=== PATIENT | female | born 1960 | race Caucasian/White ===

== ENCOUNTER 2018-07-24 10:58 | Emergency (ER) | payer OTHER, SELFPAY ==
[2018-07-24] VITALS (50 sets, daily range): BP systolic 94–117; BP diastolic 65–84; PULSE 91–103; RESP 15–32; TEMP 36.4; O2SAT 90–98
[2018-07-24] MEDS: Normal Saline 1,000 ML 1000 ML IV (11:42)
[2018-07-24 11:44] LABS: Abs Immature Grans 0.03 k/cumm (0.0-0.09); Absolute Basophil Count 0.03 k/cumm (0.0-0.2); Absolute Eosinophil Count 0.02 k/cumm (0.0-0.7); Absolute Lymphocyte Count 1.39 k/cumm (1.2-3.4); Absolute Monocyte Count 0.48 k/cumm (0.11-0.7); Absolute Neutrophil Count 6.31 k/cumm (1.2-6.7); Basophils % 0.4; Eosinophils % 0.2; HCT 44.7 % (36.0-46.0); Immature Grans % 0.4; Lymphocytes % 16.8; Mean Corp. HGB Concentration 33.6 g/dL (32.0-36.0); Mean Corpuscular Hemoglobin 30.1 pg (27.0-33.0); Mean Corpuscular Volume 89.6 fL (80-95); Mean Platelet Volume 11.4 fL (8.0-11.0); Monocytes % 5.8; Neutrophils % 76.4; Platelet Count 167 x1000/uL (130-400); RBC 4.99 m/cumm (4.00-5.20); RBC Distribution Width 13.3 % (11.7-14.6); White Blood Cell Count 8.26 k/cumm (4.4-10.8)
[2018-07-24 12:05] LABS: ALT 19 U/L (12-78); AST 26 U/L (15-37); Albumin 3.7 g/dL (3.4-5.0); Alkaline Phosphatase 120 U/L (46-116); Anion Gap 14.9 mmol/L (3-11); BUN 19 mg/dL (7-18); Bilirubin, Total 0.7 mg/dL (0.2-1.0); CO2 21.1 mmol/L (21.0-32.0); CREATININE 1.26 mg/dL (0.55-1.02); Calcium 10.2 mg/dL (8.5-10.1); Chloride 103 mmol/L (98-107); Estimated GFR 43.46 (mL/min/1.73m2); Glucose 157 mg/dL (70-100); Magnesium 2.2 mg/dL (1.8-2.4); Potassium 4.6 mmol/L (3.5-5.1); Sodium 139 mmol/L (136-145); Total Protein 8.9 g/dL (6.4-8.2)
[2018-07-24 12:07] LABS: TSH (W/Ref FT4) 3.45 uIU/mL (0.358-3.74)
[2018-07-24 12:08] LABS: Troponin I 0.07 ng/mL (0.00-0.06)
--- NOTE | 2018-07-24 12:11 | W.ED.GENAD ---
Discharge Plan Disposition Patient Disposition: [facility] Condition: Stable Discharge Details Chief Complaint: Dizzy/Sync Clinical Impression: Pulmonary emboli, Syncope, Fracture of tooth, SOB (shortness of breath) Primary Care Provider: None,None ED Provider: Guy Kam Home Meds and New Rx's Prescriptions: No Action acetaminophen [Tylenol] 325 MG tablet 975 mg PO QID PRNRF: 0 dorzolamide-timolol 10 ML drops 5 ml Ophthalmic BID RF: 0 ibuprofen 800 MG tablet 800 mg PO TID PRN (Reason: PAIN/SWELLING) Qty: 30 RF: 0 Medical Decision Making This is a 58-year-old [place] female who presents for evaluation of 5 episodes of syncope, mild chest pain shortness of breath. She had one episode of vomiting. She does often travel around the world, but denies any recent travel. No history of PE or cardiac disease. EKG demonstrates notable inverted T waves in the anterior leads, concerning for right heart strain. Patient is mildly hypotensive, slightly tachycardic but not hypoxic. Notable concern for PE vs massive PE, less likely cardiac etiology, in conjunction with severe dehydration. We will rehydrate, get a CT angios, reassess. We will continue her cardiac workup. Because of the notably loose teeth a dental splint was applied and appears to demonstrate stability in the teeth. 1:[address] results have returned and demonstrate evidence of massive multiple pulmonary emboli, with evidence of right heart strain, I feel that this is most notably supported by her low troponin leak at 0.07 and her notably elevated proBNP at 10,800. EKG continues to show T wave inversions but no evidence of STEMI. I feel her symptoms are secondary to cardiac strain from her multiple PEs. We have started heparinization with a bolus as well. Secondary to the right heart strain and massive PEs feel the patient would be best fit at a high level medical facility [facility] or [facility]. With her pressures improved to 120 systolic I do not think that TPA is indicated at this time. CT scan of the head and face demonstrate no evidence of acute fracture or bleed and so heparin will be started. 3:40 PM I did contact [facility], and discussed the case with Dr. Duval, she agrees with the current assessment and plan. The patient will be transferred to [facility] for further medical management. The patient will be admitted under Dr. Pinzon. They did not have any additional recommendations for medication alteration or management aside from what was being done already. I have extensively reviewed the treatment plan with the patient. I have addressed all patient concerns at this time. I have also discussed the plan with the admitting physician and they agree with the current assessment and plan and have agreed to assume responsibility for the patient. All parties demonstrate verbal understanding and agreement with our assessment and plan at this time. Upon my evaluation, this patient had a high probability of imminent or life-threatening deterioration, which required my direct attention, intervention, and personal management. I have personally provided 45 minutes of critical care time exclusive of time spent on separately billable procedures. Time includes review of laboratory data, radiology results, discussion with consultants, and monitoring for potential decompensation. Interventions were performed as documented above. EKG 11: 39 Rate 94, [place] 172, QTc 485, QRS 92, sinus rhythm, inverted T waves in V1 through V4, no Q waves, inverted T waves also in leads III and aVF. No prior EKG for comparison, no evidence of STEMI EKG 11: 04 Rate 98, [place] 160, QTc 480, QRS 92, sinus rhythm, inverted T waves V1 through V4, lead III, and aVF. No evidence of STEMI, no significant ST elevations or depressions. No Q waves. CRANIAL CT: Noncontrast cranial CT was performed. The patient reportedly has a history of facial trauma. The orbital structures and calvarium appear intact. There is soft tissue gas in the facial region. The paranasal sinuses and mastoid air cells are well aerated. The temporal bone structures appear intact. The ventricular system is normal in appearance. No evidence of acute intracranial hemorrhage, mass effect or midline shift. CONCLUSION: No evidence of acute intracranial injury. FACIAL BONE CT: CT examination of the facial region was performed utilizing multi-slice acquisition and multi-planar reconstruction. The patient reportedly has fractured teeth. No mandibular or maxillary fracture identified. The paranasal sinuses are well aerated. No nasal fracture seen. Orbital contents appear normal. The zygomatic arches appear intact. Sphenoid bones appear intact. The tracheolaryngeal structures appear intact. CONCLUSION: No evidence of acute facial fracture. There is significant artifact from dental work which obscures the teeth. The patient reportedly has a number of clinically apparent fractured teeth. CT ANGIOGRAPHY CHEST: CT angiography was performed with multi slice acquisition and multi planar and 3D reconstruction. CT Angiography of the chest was performed with a bolus infusion of 100 cc's of Omnipaque 350. There are very large filling defects which occupy much of the pulmonary arterial circulation with a saddle embolus crossing into right and left main pulmonary arteries and emboli in essentially all segment vessels. There is evidence of right heart strain with flattened intraventricular septum, enlarged main pulmonary artery, and reflux into hepatic veins and IVC. Minimal peripheral intrapulmonary densities are noted in the anterior left lung apex which are nonspecific and could represent atelectasis. Small pulmonary infarct not excluded. No other focal consolidation seen. No pleural effusion seen. No mediastinal or hilar adenopathy. Images obtained through the upper abdomen show unremarkable appearance of visualized portions of liver, spleen, kidneys, adrenals and pancreas with note made again of reflux of contrast material into the IVC and hepatic veins consistent with right heart strain. CONCLUSION: Findings of massive pulmonary embolus as described above with CT findings suggesting right ventricular strain. HPI General Date/Time Provider Initiated Documentation: 07/24/18 11:08. HPI Narrative: This is a 58-year-old female with no past medical history who presents today for evaluation of syncope, chest pain, shortness of breath. Patient states that over the last 2 days she has been notably lightheaded, with intermittent episodes of chest pain and shortness of breath. She has had 5 episodes of passing out which she has never had before. Most recent time she fell and hit the front of her face on the bathtub, damaging her teeth. She has felt notably weak, has had one episode of vomiting, and does had mild headache. Currently she denies any chest pain at this time. She denies any arm neck or shoulder pain, she denies any abdominal pain. She does admit to multiple flights in general, and she states that she is moving to [place] in 5 days. She denies any history or family history of cardiac disease, PEs, estrogen use, recent surgeries or traumas. She has no other complaints at this time. She denies any hemoptysis, fever, chills. Past medical history is only positive for glaucoma and multiple glaucoma surgeries. Related Data Home Medications Medication Instructions Recorded Confirmed acetaminophen [Tylenol] 975 mg PO QID PRN 01/23/15 07/24/18 dorzolamide-timolol 5 ml OPHTHALMIC BID 01/23/15 07/24/18 ibuprofen 800 mg PO TID PRN #30 tab 01/23/15 07/24/18 Previous Rx's Medication Instructions Recorded ibuprofen 800 mg PO TID PRN #30 tab 01/23/15 Allergies Allergy/AdvReac Type Severity Reaction Status Date / Time amoxicillin AdvReac itching Unverified 07/24/18 11:45 General Stated Complaint: Dizzy/Sync ALEXIS: 2 Review of Systems Review of Systems All systems reviewed & are unremarkable except as noted in HPI and below PFSH Social History Smoking/Tobacco Use Status: Never Drug use: Never Do you feel safe at home: Yes Do you feel safe in your relationship?: Yes Exam Narrative Exam Narrative: 1.Const: Well-nourished, Well-developed, appearing stated age 2.Eyes: PERRL, no conjunctival injection, and symmetrical lids. 3.ENT: Atraumatic external nose and ears. Notable contusion to her front lip, mild bleeding around the gingiva of her 2 front upper teeth. Teeth are notably loose but unfractured. They are in the sockets and intact. No other loose teeth. No laceration to the lip or gum. Moist MM. Neck: Symmetric, trachea midline, No thyromegaly. There is no evidence of raccoon eyes, mazariegos sign, CSF rhinorrhea, mastoid tenderness, cranial crepitus, hemotympanum, exophthalmos, or hyphema. Patient demonstrates intact dentition with no signs of tooth avulsion or fracture, no signs of jaw deformity, no evidence of a LeFort's fracture, with an intact palate, nose and orbital region. There is no evidence of a nasal septal hematoma. No proptosis. Jaw closes symmetrically. Airway is clear. 4.CVS: +S1/S2, No murmurs or gallops. Peripheral pulses 2+ and equal in all extremities. Brisk capillary refill in all extremities. 5.RESP: Unlabored respiratory effort. Clear to auscultation bilaterally. No wheezes rales or rhonchi 6.GI: Soft, Nontender/Nondistended, No hepatosplenomegaly. No guarding or rebound. 7.MSK: Normocephalic/Atraumatic, Extremities w/o deformity or ttp No cyanosis or clubbing, Normal movement of all extremities. No calf tenderness 8.Skin: Warm, Dry. No rashes or lesions. 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 Sensation grossly intact, no focal neurologic deficits. 10.Psych: (AAO) x3. Appropriate mood and affect Course Vital Signs Temperature 36.4 C L 07/24/18 11:06 Pulse 99 H 07/24/18 11:06 Respiratory Rate 17 07/24/18 11:06 Blood Pressure 98/78 L 07/24/18 11:06 Pulse Oximetry 96 07/24/18 11:06 Temperature 36.4 C L 07/24/18 11:06 Temperature Source Skin 07/24/18 11:06 Pulse 99 H 07/24/18 11:06 Respiratory Rate 17 07/24/18 11:06 Respiratory Effort Non-Labored 07/24/18 11:43 Blood Pressure 98/78 L 07/24/18 11:06 Blood Pressure Position Sitting 07/24/18 11:06 Pulse Oximetry 96 07/24/18 11:06 Oxygen Delivery Method Room Air 07/24/18 11:06 Oxygen Flow Rate 0 07/24/18 11:06 Lab/Test Results Lab/Test Results: Laboratory Tests Range/Units 07/24/18 07/24/18 11:30 11:30 WBC (4.4-10.8) k/cumm 8.26 RBC (4.00-5.20) m/cumm 4.99 Hgb (12.0-15.5) g/dL 15.0 Hct (36.0-46.0) % 44.7 MCV (80-95) fL 89.6 MCH (27.0-33.0) pg 30.1 MCHC (32.0-36.0) g/dL 33.6 RDW (11.7-14.6) % 13.3 Plt Count (130-400) x1000/uL 167 MPV (8.0-11.0) fL 11.4 H Immature Gran % 0.4 Neutrophils % 76.4 Lymphocytes % 16.8 Monocytes % 5.8 Eosinophils % 0.2 Basophils % 0.4 Absolute Neutrophils (1.2-6.7) k/cumm 6.31 Absolute Lymphocytes (1.2-3.4) k/cumm 1.39 Absolute Monocytes (0.11-0.7) k/cumm 0.48 Absolute Eosinophils (0.0-0.7) k/cumm 0.02 Absolute Basophils (0.0-0.2) k/cumm 0.03 Sodium (136-145) mmol/L 139 Potassium (3.5-5.1) mmol/L 4.6 Chloride (98-107) mmol/L 103 Carbon Dioxide (21.0-32.0) mmol/L 21.1 Anion Gap (3-11) mmol/L 14.9 H BUN (7-18) mg/dL 19 H Creatinine (0.55-1.02) mg/dL 1.26 H Estimated GFR/1.73 m2 (mL/min/1.73m2) 43.46 Glucose (70-100) mg/dL 157 H Calcium (8.5-10.1) mg/dL 10.2 H Magnesium (1.8-2.4) mg/dL 2.2 Total Bilirubin (0.2-1.0) mg/dL 0.7 AST (15-37) U/L 26 ALT (12-78) U/L 19 Alkaline Phosphatase (46-116) U/L 120 H Troponin I (0.00-0.06) ng/mL 0.07 H Total Protein (6.4-8.2) g/dL 8.9 H Albumin (3.4-5.0) g/dL 3.7
--- NOTE | 2018-07-24 12:17 | ED.GENADUL_ITS ---
Discharge Plan Disposition Patient Disposition: [facility] Condition: Stable Discharge Details Chief Complaint: Dizzy/Sync Clinical Impression: Pulmonary emboli, Syncope, Fracture of tooth, SOB (shortness of breath) Primary Care Provider: None,None ED Provider: Guy Kam Home Meds and New Rx's Prescriptions: No Action acetaminophen [Tylenol] 325 MG tablet 975 mg PO QID PRNRF: 0 dorzolamide-timolol 10 ML drops 5 ml Ophthalmic BID RF: 0 ibuprofen 800 MG tablet 800 mg PO TID PRN (Reason: PAIN/SWELLING) Qty: 30 RF: 0 Medical Decision Making This is a 58-year-old [place] female who presents for evaluation of 5 episodes of syncope, mild chest pain shortness of breath. She had one episode of vomiting. She does often travel around the world, but denies any recent travel. No history of PE or cardiac disease. EKG demonstrates notable inverted T waves in the anterior leads, concerning for right heart strain. Patient is mildly hypotensive, slightly tachycardic but not hypoxic. Notable concern for PE vs massive PE, less likely cardiac etiology, in conjunction with severe dehydration. We will rehydrate, get a CT angios, reassess. We will continue her cardiac workup. Because of the notably loose teeth a dental splint was applied and appears to demonstrate stability in the teeth. 1:[address] results have returned and demonstrate evidence of massive multiple pulmonary emboli, with evidence of right heart strain, I feel that this is most notably supported by her low troponin leak at 0.07 and her notably elevated proBNP at 10,800. EKG continues to show T wave inversions but no evidence of STEMI. I feel her symptoms are secondary to cardiac strain from her multiple PEs. We have started heparinization with a bolus as well. Secondary to the right heart strain and massive PEs feel the patient would be best fit at a high level medical facility [facility] or [facility]. With her pressures improved to 120 systolic I do not think that TPA is indicated at this time. CT scan of the head and face demonstrate no evidence of acute fracture or bleed and so heparin will be started. 3:[address] [facility], and discussed the case with Dr. Duval, she agrees with the current assessment and plan. The patient will be transferred to [facility] for further medical management. The patient will be admitted under Dr. Pinzon. They did not have any additional recommendations for medication alteration or management aside from what was being done already. I have extensively reviewed the treatment plan with the patient. I have addressed all patient concerns at this time. I have also discussed the plan with the admitting physician and they agree with the current assessment and plan and have agreed to assume responsibility for the patient. All parties demonstrate verbal understanding and agreement with our assessment and plan at this time. Upon my evaluation, this patient had a high probability of imminent or life- threatening deterioration, which required my direct attention, intervention, and personal management. I have personally provided 45 minutes of critical care time exclusive of time spent on separately billable procedures. Time includes review of laboratory data, radiology results, discussion with consultants, and monitoring for potential decompensation. Interventions were performed as documented above. EKG 11: 39 Rate 94, [place] 172, QTc 485, QRS 92, sinus rhythm, inverted T waves in V1 through V4, no Q waves, inverted T waves also in leads III and aVF. No prior EKG for comparison, no evidence of STEMI EKG 11: 04 Rate 98, [place] 160, QTc 480, QRS 92, sinus rhythm, inverted T waves V1 through V4, lead III, and aVF. No evidence of STEMI, no significant ST elevations or depressions. No Q waves. CRANIAL CT: Noncontrast cranial CT was performed. The patient reportedly has a history of facial trauma. The orbital structures and calvarium appear intact. There is soft tissue gas in the facial region. The paranasal sinuses and mastoid air cells are well aerated. The temporal bone structures appear intact. The ventricular system is normal in appearance. No evidence of acute intracranial hemorrhage, mass effect or midline shift. CONCLUSION: No evidence of acute intracranial injury. FACIAL BONE CT: CT examination of the facial region was performed utilizing multi-slice acquisition and multi-planar reconstruction. The patient reportedly has fractured teeth. No mandibular or maxillary fracture identified. The paranasal sinuses are well aerated. No nasal fracture seen. Orbital contents appear normal. The zygomatic arches appear intact. Sphenoid bones appear intact. The tracheolaryngeal structures appear intact. CONCLUSION: No evidence of acute facial fracture. There is significant artifact from dental work which obscures the teeth. The patient reportedly has a number of clinically apparent fractured teeth. CT ANGIOGRAPHY CHEST: CT angiography was performed with multi slice acquisition and multi planar and 3D reconstruction. CT Angiography of the chest was performed with a bolus infusion of 100 cc's of Omnipaque 350. There are very large filling defects which occupy much of the pulmonary arterial circulation with a saddle embolus crossing into right and left main pulmonary arteries and emboli in essentially all segment vessels. There is evidence of right heart strain with flattened intraventricular septum, enlarged main pulmonary artery, and reflux into hepatic veins and IVC. Minimal peripheral intrapulmonary densities are noted in the anterior left lung apex which are nonspecific and could represent atelectasis. Small pulmonary infarct not excluded. No other focal consolidation seen. No pleural effusion seen. No mediastinal or hilar adenopathy. Images obtained through the upper abdomen show unremarkable appearance of visualized portions of liver, spleen, kidneys, adrenals and pancreas with note made again of reflux of contrast material into the IVC and hepatic veins consistent with right heart strain. CONCLUSION: Findings of massive pulmonary embolus as described above with CT findings suggesting right ventricular strain. HPI General Date/Time Provider Initiated Documentation: 07/24/18 11:08 . HPI Narrative: This is a 58-year-old female with no past medical history who presents today for evaluation of syncope, chest pain, shortness of breath. Patient states that over the last 2 days she has been notably lightheaded, with intermittent episodes of chest pain and shortness of breath. She has had 5 episodes of passing out which she has never had before. Most recent time she fell and hit the front of her face on the bathtub, damaging her teeth. She has felt notably weak, has had one episode of vomiting, and does had mild headache. Currently she denies any chest pain at this time. She denies any arm neck or shoulder pain, she denies any abdominal pain. She does admit to multiple flights in general, and she states that she is moving to [place] in 5 days. She denies any history or family history of cardiac disease, PEs, estrogen use, recent surgeries or traumas. She has no other complaints at this time. She denies any hemoptysis, fever, chills. Past medical history is only positive for glaucoma and multiple glaucoma surgeries. Related Data Home Medications Medication Instructions Recorded Confirmed acetaminophen [Tylenol] 975 mg PO QID PRN 01/23/15 07/24/18 dorzolamide-timolol 5 ml OPHTHALMIC BID 01/23/15 07/24/18 ibuprofen 800 mg PO TID PRN #30 tab 01/23/15 07/24/18 Previous Rx's Medication Instructions Recorded ibuprofen 800 mg PO TID PRN #30 tab 01/23/15 Allergies Allergy/AdvReac Type Severity Reaction Status Date / Time amoxicillin AdvReac itching Unverified 07/24/18 11:45 General Stated Complaint: Dizzy/Sync ALEXIS: 2 Review of Systems Review of Systems All systems reviewed & are unremarkable except as noted in HPI and below PFSH Social History Smoking/Tobacco Use Status: Never Drug use: Never Do you feel safe at home: Yes Do you feel safe in your relationship?: Yes Exam Narrative Exam Narrative: 1.Const: Well-nourished, Well-developed, appearing stated age 2.Eyes: PERRL, no conjunctival injection, and symmetrical lids. 3.ENT: Atraumatic external nose and ears. Notable contusion to her front lip, mild bleeding around the gingiva of her 2 front upper teeth. Teeth are notably loose but unfractured. They are in the sockets and intact. No other loose teeth. No laceration to the lip or gum. Moist MM. Neck: Symmetric, trachea midline, No thyromegaly. There is no evidence of raccoon eyes, mazariegos sign, CSF rhinorrhea, mastoid tenderness, cranial crepitus, hemotympanum, exophthalmos, or hyphema. Patient demonstrates intact dentition with no signs of tooth avulsion or fracture, no signs of jaw deformity, no evidence of a LeFort's fracture, with an intact palate, nose and orbital region. There is no evidence of a nasal septal hematoma. No proptosis. Jaw closes symmetrically. Airway is clear. 4.CVS: +S1/S2, No murmurs or gallops. Peripheral pulses 2+ and equal in all extremities. Brisk capillary refill in all extremities. 5.RESP: Unlabored respiratory effort. Clear to auscultation bilaterally. No wheezes rales or rhonchi 6.GI: Soft, Nontender/Nondistended, No hepatosplenomegaly. No guarding or rebound. 7.MSK: Normocephalic/Atraumatic, Extremities w/o deformity or ttp No cyanosis or clubbing, Normal movement of all extremities. No calf tenderness 8.Skin: Warm, Dry. No rashes or lesions. 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 Sensation grossly intact, no focal neurologic deficits. 10.Psych: (AAO) x3. Appropriate mood and affect Course Vital Signs Temperature 36.4 C L 07/24/18 11:06 Pulse 99 H 07/24/18 11:06 Respiratory Rate 17 07/24/18 11:06 Blood Pressure 98/78 L 07/24/18 11:06 Pulse Oximetry 96 07/24/18 11:06 Temperature 36.4 C L 07/24/18 11:06 Temperature Source Skin 07/24/18 11:06 Pulse 99 H 07/24/18 11:06 Respiratory Rate 17 07/24/18 11:06 Respiratory Effort Non-Labored 07/24/18 11:43 Blood Pressure 98/78 L 07/24/18 11:06 Blood Pressure Position Sitting 07/24/18 11:06 Pulse Oximetry 96 07/24/18 11:06 Oxygen Delivery Method Room Air 07/24/18 11:06 Oxygen Flow Rate 0 07/24/18 11:06 Lab/Test Results Lab/Test Results: Laboratory Tests Range/Units 07/24/18 07/24/18 11:30 11:30 WBC (4.4-10.8) k/cumm 8.26 RBC (4.00-5.20) m/cumm 4.99 Hgb (12.0-15.5) g/dL 15.0 Hct (36.0-46.0) % 44.7 MCV (80-95) fL 89.6 MCH (27.0-33.0) pg 30.1 MCHC (32.0-36.0) g/dL 33.6 RDW (11.7-14.6) % 13.3 Plt Count (130-400) x1000/uL 167 MPV (8.0-11.0) fL 11.4 H Immature Gran % 0.4 Neutrophils % 76.4 Lymphocytes % 16.8 Monocytes % 5.8 Eosinophils % 0.2 Basophils % 0.4 Absolute Neutrophils (1.2-6.7) k/cumm 6.31 Absolute Lymphocytes (1.2-3.4) k/cumm 1.39 Absolute Monocytes (0.11-0.7) k/cumm 0.48 Absolute Eosinophils (0.0-0.7) k/cumm 0.02 Absolute Basophils (0.0-0.2) k/cumm 0.03 Sodium (136-145) mmol/L 139 Potassium (3.5-5.1) mmol/L 4.6 Chloride (98-107) mmol/L 103 Carbon Dioxide (21.0-32.0) mmol/L 21.1 Anion Gap (3-11) mmol/L 14.9 H BUN (7-18) mg/dL 19 H Creatinine (0.55-1.02) mg/dL 1.26 H Estimated GFR/1.73 m2 (mL/min/1.73m2) 43.46 Glucose (70-100) mg/dL 157 H Calcium (8.5-10.1) mg/dL 10.2 H Magnesium (1.8-2.4) mg/dL 2.2 Total Bilirubin (0.2-1.0) mg/dL 0.7 AST (15-37) U/L 26 ALT (12-78) U/L 19 Alkaline Phosphatase (46-116) U/L 120 H Troponin I (0.00-0.06) ng/mL 0.07 H Total Protein (6.4-8.2) g/dL 8.9 H Albumin (3.4-5.0) g/dL 3.7
[2018-07-24] MEDS: Omnipaque 350 MG/ML 100 ML BTL IJ (12:23)
[2018-07-24 12:24] LABS: NT-proBNP 10884 pg/mL
[2018-07-24] MEDS: Normal Saline Flush 10 ML SYR IVP (12:26)
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
[2018-07-24 13:01] LABS: INR 1.1 (0.9-1.1); PTT Activated 23.2 sec (21.0-31.4); Prothrombin Time 10.7 sec (9.3-11.0)
[2018-07-24] MEDS: Normal Saline 1,000 ML 125 ML IV (15:31)
== END 2018-07-24 15:50 | disposition short-term general hospital (02) ==
PROVIDERS: Emergency Provider Student in an Organized Health Care Education/Training Program
DX: I26.99 Other pulmonary embolism without acute cor pulmonale (principal); R55 Syncope and collapse; R06.02 Shortness of breath; R94.31 Abnormal electrocardiogram [ECG] [EKG]; K03.81 Cracked tooth
CPT/HCPCS: 36415; 71275; 80053; 93005; 96361; 96365; 96366; 96376; 99291; 70450; 70486; 83735; 83880; 84443; 84484; 85025; 85610; 85730; 93010; J3490